=== PATIENT | male | born 1950 | race Caucasian/White ===

== ENCOUNTER → 2017-08-18 | Outpatient (CLI) | payer MEDICARE, OTHER ==
--- NOTE | 2017-08-18 12:58 | Diagnostic Imaging Report ---
PROCEDURE:SMALL BOWEL SERIES COMPARISON:None. INDICATIONS:BILATERAL UPPER ABDOMEN PAIN TEQUNIQUE: A [employer] radiograph was performed. The patient was given barium to drink and sequential images of the abdomen were obtained through 3 hours until the contrast had reached the colon. Spot images of the small bowel and terminal ileum were obtained. Fluoro time: 1.3 minutes Fluoroscopic dose: 43.50 microGy FINDINGS: Unremarkable bowel gas pattern. No dilated bowel loops. Cholecystectomy clips are present. Small bowel: Normal motility and caliber No evidence of mass or mucosal abnormality. Also fold pattern appears normal. No evidence of effusion. Normal terminal ileum. CONCLUSION: Normal small bowel follow-through. Dictated by: Regi Sun M.D. on 08/18/2017 at 12:58 Electronically approved by: Regi Sun M.D. on 08/18/2017 at 12:58
== END ==
LOC: DX 06:59
PROVIDERS: ATTEND Internal Medicine Gastroenterology
DX: R10.11 Right upper quadrant pain (principal)
CPT/HCPCS: 74250

== ENCOUNTER → 2017-08-31 | Outpatient (CLI) | payer MEDICARE, OTHER ==
[~2017-08-31] MED LIST: GADOBENATE DIMEGLUMINE 1 ML IV ONE; LORAZEPAM INJ 2 MG/ML VIAL ONE
[2017-08-31 09:05] LABS: BLOOD UREA NITROGEN 9 mg/dL (7-26); BUN/CREATININE RATIO 8 (6-25); CREATININE, SERUM 1.17 mg/dL (0.72-1.25); EST GLOMERULAR FILTRATION RATE > 60 ML/MIN (60-)
--- NOTE | 2017-08-31 11:53 | Diagnostic Imaging Report ---
EXAM: MRI of the abdomen with and without contrast. INDICATION: Abdominal pain. COMPARISON: None. TECHNIQUE: Multiplanar and multisequence imaging was performed of the abdomen. T1 and T2-weighted images were obtained with and without contrast. T1-weighted in and [id number] , Dynamic, post gadolinium T1-weighted spoiled gradient echo scans. IV Contrast: 13 cc of MultiHance Oral Contrast: None. Medications: None DISCUSSION: Very limited study due to artifacts and motion. LOWER THORAX: Borderline cardiomegaly. HEPATOBILIARY: No focal hepatic lesions. Common bile duct distention up to 0.9 cm, likely due to postcholecystectomy reservoir effects. GALLBLADDER: Surgically absent. SPLEEN: No splenomegaly. PANCREAS: Atrophic. No focal masses or ductal dilatation. ADRENALS: No adrenal nodules KIDNEYS/URETERS: Kidneys enhance symmetrically. No hydronephrosis. Multiple right renal cysts, the largest in the inferior pole measuring 4.8 x 4.7 cm. The posterior midpole 1.2 cm T1 and T2 hyperintense lesion without definite signs of enhancement on subtraction postcontrast images, representing a hemorrhagic cyst (series 5, image 21). GI TRACT: Visualized bowel loops are grossly unremarkable. No evidence of bowel obstruction. Appendix is visualized on coronal images and appears unremarkable. LYMPH NODES: No lymphadenopathy. VESSELS: Moderate to severe atherosclerotic disease of abdominal aorta. PERITONEUM / RETROPERITONEUM: No free air or fluid. BONES: Unremarkable. Degenerative changes of lumbar spine. SOFT TISSUES: Unremarkable. IMPRESSION: 1. Very limited study. 2. No definite evidence of acute inflammatory process in the abdomen/pelvis. If clinical symptoms persist, consider obtaining CT with contrast for further evaluation. 3. Status post cholecystectomy with mild common bile duct dilatation, likely due to reservoir effects. 4. Multiple right renal cysts as described above. Signed by: Dr. Gray Burleson MD on 08/31/2017 11:49 AM
== END ==
LOC: MRI 08:11
PROVIDERS: ATTEND Internal Medicine Gastroenterology
DX: K22.70 Barrett's esophagus without dysplasia (principal)
CPT/HCPCS: 36415; 74183; 82565; 84520; J2060

== ENCOUNTER → 2018-01-23 | Day surgery (SDC) | payer MEDICARE, OTHER ==
[~2018-01-23] VITALS: Ht 170.2 cm; Wt 63.5 kg
[~2018-01-23] MED LIST changes: +BUPIVACAINE HCL 0.5% INJ 30 ML VIAL INJ ONE; +CEFAZOLIN SOD 1 GM/D5W 50ML 50 ML IV ONE; +CLINDAMYCIN PHOS 900MG/ 50ML 50 ML IV ONE; +DEXAMETHASONE SOD PHOS INJ 4 MG/ML VIAL ONE; +DIPHTH/TETANUS/ACEL. PERTUSSIS 0.5 ML SYR IM ONE; +EPHEDRINE SULFATE INJ 50 MG/10 ML SYR ONE; +FENTANYL CITRATE/PF 100MCG/2 ML INJ ONE; -GADOBENATE DIMEGLUMINE 1 ML IV ONE; +GLYCOPYRROLATE INJ 1MG/ 5 ML SYR ONE; +KETOROLAC TROMETHAMINE 30 MG/ML VIAL ONE; +LACTATED RINGER'S 1,000 ML IV SCH; +LIDOCAINE 1% 5ML-MPF INJ ONE; +LIDOCAINE 2%/ EPINEPHRINE 20ML MDV INJ ONE; +LIDOCAINE HCL 1% LOCAL INJ 20 ML VIAL INJ ONE; +LIDOCAINE HCL 2% LOCAL 20 ML VIAL INJ ONE; +LIDOCAINE HCL 2% LOCAL INJ 5 ML SDV VIAL INJ ONE; -LORAZEPAM INJ 2 MG/ML VIAL ONE; +MIDAZOLAM HCL 2 MG/2 ML VIAL ONE; +MUPIROCIN 2% OINT 22 GM TUBE ONE; +ONDANSETRON HCL INJ 2 MG/ML VIAL ONE; +PROPOFOL IV EMULSION 10 MG/ML 20 ML VIAL ONE; +SEVOFLURANE INHAL SOLN 250 ML PEN BTL ONE
--- NOTE | 2018-01-23 11:28 | Diagnostic Imaging Report ---
Exam: Right thumb 3 views History: Injury Comparison: None. Findings: Acute markedly comminuted fracture of the entirety of the first distal phalanx with extension to the interphalangeal joint. Overlying soft tissue lacerations. The proximal phalanx appears intact. Impression: Markedly comminuted fracture of the first distal phalanx with associated soft tissue laceration. Signed by: Dr. Keith Moralez M.D. on 01/23/2018 11:25 AM
--- NOTE | 2018-01-23 18:28 | Operative Report ---
DATE OF PROCEDURE: January 23, 2018 PREOPERATIVE DIAGNOSES 1. Table saw injury, right thumb. 2. Incomplete amputation, right thumb, distal phalanx. 3. Open fracture in distal phalanx. POSTOPERATIVE DIAGNOSES 1. Table saw injury, right thumb. 2. Incomplete amputation, right thumb, distal phalanx. 3. Open fracture in distal phalanx. PROCEDURES PERFORMED: 1. Debridement of distal phalanx, soft tissues. 2. Repair of saw injury, right thumb, incomplete amputation. ANESTHESIA: General. HISTORY: The patient is a 67-year-old right hand dominant male who sustained a table saw injury to the right thumb last evening. He did not come to the emergency room until today around noon. He was seen urgently and evaluation was performed. It was noted that the tissues were vascularized, but dusky, and he is now being taken to the OR urgently for repair of incomplete amputation/table saw injury of right thumb. Risks, benefits and alternatives of treatment were discussed with the patient. He is prepared to undergo the procedure as outlined. DETAILS OF PROCEDURE: Patient was marked preoperatively in the holding area. He was brought to the operating theater and after the induction of adequate general anesthesia he was prepped and draped in a supine position. A time out was performed. The right upper extremity was exsanguinated and tourniquet was inflated to a pressure of 250 mmHg. The procedure was begun by sharply debriding all the devitalized soft tissues on the volar aspect of the distal phalanx from the IP flexion crease all the way to the distal tip. At this point, copious irrigation was done to remove all particulate wood and bony fragments. Once this was performed, the C-arm fluoroscope was brought in and the major fracture fragments are aligned as best possible and transfixed with 0.28 K wires transversely. At this point, the soft tissues were then repaired using 5-0 nylon in interrupted fashion. Once the volar soft tissues had been repaired, attention was turned to the nail bed. The nail plate was completely transected sagittally in its midline. The nail plate was removed and the nail bed was then gently debrided of all devitalized tissue. A 5-0 chromic was then used in interrupted fashion to approximate the nail bed as well as the germinal matrix underneath the eponychial fold. An INRO nail stent was then fabricated and secured to the eponychial fold in the distal tip of the thumb using 5-0 nylon suture. The tourniquet was deflated. The thumb pinked up and the wound was noted to be hemostatic. Bactroban ointment, Xeroform gauze was then placed on the thumb. Sterile dressings were applied and then a foam aluminum splint was added for external protection and held in place with Coban. The patient tolerated the procedure well. Estimated blood loss during the procedure was negligible. A 0.5% plain Marcaine field block was performed at the base of the right thumb for postoperative analgesia. Approximately 6 mL was used. Patient was returned to recovery room in satisfactory condition and discharged with a postoperative instruction sheet as well as a followup appointment. Job#: [id number] GUILLERMINA
[2018-01-23 18:45] VITALS: BP 147/62
== END | disposition home or self-care (01) ==
LOC: ER 09:41 → UNDOADMOB 15:08 → ERHOLD 15:08 → OR 15:59
PROVIDERS: ATTEND Plastic Surgery
DX: S68.021A Partial traumatic metacarpophalangeal amputation of right thumb, initial encounter (principal); S62.630A Displaced fracture of distal phalanx of right index finger, initial encounter for closed fracture; I25.2 Old myocardial infarction; E03.9 Hypothyroidism, unspecified; F17.210 Nicotine dependence, cigarettes, uncomplicated; W31.2XXA Contact with powered woodworking and forming machines, initial encounter; Y92.009 Unspecified place in unspecified non-institutional (private) residence as the place of occurrence of the external cause; Z95.1 Presence of aortocoronary bypass graft
CPT/HCPCS: 11730; 26765; 73140; 99284; J1100; J1885; J2001 ×2; J2250; J2405; J3490; J7120

== ENCOUNTER 2021-12-06 12:19 | Emergency (ER) | payer MEDICARE, OTHER ==
[~2021-12-06] VITALS: Ht 170.2 cm; Wt 63.5 kg
[2021-12-06 13:37] LABS: BASOPHILS % 0.2 % (0.0-1.0); EOSINOPHILS # (AUTO) 0.2 (0.0-0.4); EOSINOPHILS % 1.3 % (0.0-6.0); HEMOGLOBIN 13.6 g/dL (14.0-18.0); LYMPHOCYTES # (AUTO) 1.2 (1.0-3.2); LYMPHOCYTES % 10.8 % (18.0-39.1); MEAN CORPUSCULAR HEMOGLOBIN 31.3 pg (28-32); MEAN CORPUSCULAR HGB CONC 33.2 g/dL (31-35); MEAN CORPUSCULAR VOLUME 94.5 fL (81-99); MONOCYTES % 8.5 % (4.4-11.3); NEUTROPHILS # (AUTO) 8.8 (2.1-6.9); NEUTROPHILS % 78.6 % (38.7-80.0); PLATELET COUNT 356 x10e3/uL (140-360); RED BLOOD COUNT 4.34 x10e6/uL (4.3-5.7); RED CELL DISTRIBUTION WIDTH 12.4 % (11.7-14.4)
[2021-12-06 13:44] LABS: INR 0.98; PROTHROMBIN TIME 13.9 seconds (11.9-14.5)
[2021-12-06 13:50] LABS: ALBUMIN 2.9 g/dL (3.5-5.0); ALBUMIN/GLOBULIN RATIO 0.8 (0.8-2.0); ANION GAP 13.2 mmol/L (8-16); CALCIUM 8.6 mg/dL (8.4-10.2); CREATININE, SERUM 1.16 mg/dL (0.72-1.25); POTASSIUM 4.2 mmol/L (3.5-5.1)
[2021-12-06 13:57] LABS: CREATINE KINASE MB 2.1 ng/mL (0-5.0)
[2021-12-06] MEDS ORDERED: DEXAMETHASONE SOD PHOS 10 MG/1 ML VIAL IV ONE (15:00)
[2021-12-06] MEDS ORDERED: SODIUM CHLORIDE 0.9% 500ML 500 ML IV ONE (15:00)
[2021-12-06] MEDS ORDERED: ALBUTEROL/IPRATROPIUM 3 ML NEB NEB ONE (15:00)
[2021-12-06] MEDS ORDERED: IOPAMIDOL 370 MG/ML 100 ML INFUS..BTL INJ ONE (16:22)
== END 2021-12-06 18:08 | disposition home or self-care (01) ==
LOC: ER 12:24
DX: R06.02 Shortness of breath (principal); J44.1 Chronic obstructive pulmonary disease with (acute) exacerbation; J40 Bronchitis, not specified as acute or chronic; R05.9 Cough, unspecified; I10 Essential (primary) hypertension; E78.5 Hyperlipidemia, unspecified; F41.9 Anxiety disorder, unspecified; Z87.01 Personal history of pneumonia (recurrent); Z95.1 Presence of aortocoronary bypass graft; F17.210 Nicotine dependence, cigarettes, uncomplicated
CPT/HCPCS: 0223U; 36415; 71045; 71260; 80053; 82550; 82553; 83605; 83880; 84484; 85025; 85379; 85610; 85730; 87040; 93005; 94640; 94799; 99284; J1100; J7040; Q9967

== ENCOUNTER 2022-08-24 16:44 | Inpatient (IN) | payer MEDICARE ==
[~2022-08-24] VITALS: Ht 170.2 cm; Wt 63.5 kg
[2022-08-24] MEDS ORDERED: ACETAMINOPHEN 325 MG TAB PO ONE (17:15)
[2022-08-24] MEDS ORDERED: ALBUTEROL/IPRATROPIUM 3 ML NEB NEB ONE (17:15)
[2022-08-24] MEDS ORDERED: PREDNISONE 20 MG TAB PO ONE (17:15)
[2022-08-24 17:22] LABS: BASOPHILS % 0.3 % (0.0-1.0); EOSINOPHILS # (AUTO) 0.1 (0.0-0.4); EOSINOPHILS % 1.2 % (0.0-6.0); HEMATOCRIT 35.9 % (38.2-49.6); HEMOGLOBIN 12.3 g/dL (14.0-18.0); LYMPHOCYTES % 10.9 % (18.0-39.1); MEAN CORPUSCULAR HEMOGLOBIN 32.8 pg (28-32); MEAN CORPUSCULAR HGB CONC 34.3 g/dL (31-35); MEAN CORPUSCULAR VOLUME 95.7 fL (81-99); MONOCYTES # (AUTO) 1.2 (0.2-0.8); MONOCYTES % 12.6 % (4.4-11.3); NEUTROPHILS # (AUTO) 6.9 (2.1-6.9); NEUTROPHILS % 74.5 % (38.7-80.0); PLATELET COUNT 211 x10e3/uL (140-360); RED BLOOD COUNT 3.75 x10e6/uL (4.3-5.7); RED CELL DISTRIBUTION WIDTH 12.2 % (11.7-14.4)
[2022-08-24 17:35] LABS: ALBUMIN 3.3 g/dL (3.5-5.0); ALBUMIN/GLOBULIN RATIO 0.9 (0.8-2.0); ANION GAP 15.2 mmol/L (8-16); CALCIUM 9.1 mg/dL (8.4-10.2); CREATININE, SERUM 1.48 mg/dL (0.72-1.25); POTASSIUM 4.2 mmol/L (3.5-5.1)
[2022-08-24 17:45] LABS: MAGNESIUM 1.8 MG/DL (1.3-2.1)
[2022-08-24] MEDS ORDERED: ACETAMINOPHEN/CODEINE 300MG - 30MG TAB PO ONE (18:00)
[2022-08-24] MEDS ORDERED: SODIUM CHLORIDE 0.9% 1000ML 1,000 ML IV SCH ×2 (18:00→20:00)
[2022-08-24] MEDS ORDERED: IOPAMIDOL 370 MG/ML 100 ML INFUS..BTL INJ ONE (18:20)
[2022-08-24] MEDS ORDERED: ASPIRIN 81 MG CHEW TAB PO ONE (20:00)
[2022-08-24 20:24] LABS: CREATINE KINASE MB 6.6 ng/mL (0-5.0)
[2022-08-24] MEDS ORDERED: ACETAMINOPHEN 325 MG TAB PO PRN (20:30)
[2022-08-24] MEDS ORDERED: AZITHROMYCIN 250 MG TAB PO SCH (21:00)
[2022-08-24] MEDS ORDERED: GUAIFENESIN 200 MG/10 ML UDC PO PRN (22:45)
[2022-08-24] MEDS ORDERED: MELATONIN 5 MG TABLET PO SCH (22:45)
[2022-08-24] MEDS ORDERED: BENZONATATE 100 MG CAP PO PRN (22:45)
[2022-08-24] MEDS ORDERED: ALBUTEROL/IPRATROPIUM 3 ML NEB NEB SCH (23:00)
[2022-08-24] MEDS: IPRATROPIUM BROMIDE 0.02% 2.5 ML NEB NEB SCH (23:15)
[2022-08-24] MEDS: ALBUTEROL SULF 0.083% NEB SOLN 3 ML NEB NEB SCH (23:15)
[2022-08-24 23:20] VITALS: BP 98/65
[2022-08-24 23:47] VITALS: BP 98/65
[2022-08-24 23:48] VITALS: BP 98/65
[2022-08-25] MEDS ORDERED: SPIRONOLACTONE25 MG PO (00:54)
[2022-08-25] MEDS ORDERED: TRAZODONE HCL100 MG PO (00:54)
[2022-08-25] MEDS ORDERED: ATORVASTATIN CA20 MG PO (00:54)
[2022-08-25] MEDS ORDERED: FENTANYL1 EAC2 (00:54)
[2022-08-25] MEDS ORDERED: CYMBALTA30 MG (00:54)
[2022-08-25] MEDS ORDERED: METOPROLOL SUCC25 MG PO (00:54)
[2022-08-25] MEDS ORDERED: PLAVIX75 MG PO (00:54)
[2022-08-25] MEDS ORDERED: XANAX1 MG PO (00:54)
[2022-08-25] MEDS ORDERED: LEVOTHYROXINE112 MCG PO (00:54)
[2022-08-25] MEDS ORDERED: ENTRESTO 24 MG1 EACH PO (00:54)
[2022-08-25] MEDS ORDERED: ROPINIROLE HC0.25 MG PO (00:54)
[2022-08-25 04:00] VITALS: BP 103/67
[2022-08-25 05:47] LABS: BASOPHILS % 0.4 % (0.0-1.0); HEMATOCRIT 32.1 % (38.2-49.6); HEMOGLOBIN 10.8 g/dL (14.0-18.0); LYMPHOCYTES # (AUTO) 0.7 (1.0-3.2); LYMPHOCYTES % 9.2 % (18.0-39.1); MEAN CORPUSCULAR HEMOGLOBIN 32.6 pg (28-32); MEAN CORPUSCULAR HGB CONC 33.6 g/dL (31-35); MONOCYTES # (AUTO) 0.6 (0.2-0.8); MONOCYTES % 7.8 % (4.4-11.3); NEUTROPHILS # (AUTO) 6.6 (2.1-6.9); NEUTROPHILS % 81.4 % (38.7-80.0); PLATELET COUNT 197 x10e3/uL (140-360); RED BLOOD COUNT 3.31 x10e6/uL (4.3-5.7); RED CELL DISTRIBUTION WIDTH 11.9 % (11.7-14.4)
[2022-08-25 06:07] LABS: ALBUMIN 2.6 g/dL (3.5-5.0); ALBUMIN/GLOBULIN RATIO 0.8 (0.8-2.0); ANION GAP 11.4 mmol/L (8-16); CALCIUM 8.2 mg/dL (8.4-10.2); CREATININE, SERUM 1.17 mg/dL (0.72-1.25); POTASSIUM 4.4 mmol/L (3.5-5.1)
[2022-08-25 06:28] LABS: CREATINE KINASE MB 6.2 ng/mL (0-5.0)
[2022-08-25] MEDS: ALBUTEROL SULF 0.083% NEB SOLN 3 ML NEB NEB SCH ×2 (07:43→12:46)
[2022-08-25] MEDS: IPRATROPIUM BROMIDE 0.02% 2.5 ML NEB NEB SCH ×2 (07:43→12:46)
[2022-08-25 08:36] VITALS: BP 100/56
[2022-08-25] MEDS ORDERED: PREDNISONE 20 MG TAB PO SCH (09:00)
[2022-08-25] MEDS ORDERED: AZITHROMYCIN250 MG PO (11:45)
[2022-08-25] MEDS ORDERED: PREDNISONE20 MG PO (11:45)
[2022-08-25] MEDS ORDERED: SYMBICORT 16010.2 GM INH (11:45)
[2022-08-25 11:51] VITALS: BP 80/64
== END 2022-08-25 13:28 | disposition home or self-care (01) | DRG 191 ==
LOC: ER 16:48 → ERHOLD 20:00 → MED/SURG 22:54
PROVIDERS: ADMIT Internal Medicine; ATTEND Internal Medicine
DX: J44.1 Chronic obstructive pulmonary disease with (acute) exacerbation (principal); N17.9 Acute kidney failure, unspecified; I11.0 Hypertensive heart disease with heart failure; I50.9 Heart failure, unspecified; I48.91 Unspecified atrial fibrillation; F32.9 Major depressive disorder, single episode, unspecified; D64.9 Anemia, unspecified; E78.5 Hyperlipidemia, unspecified; F41.9 Anxiety disorder, unspecified; I25.10 Atherosclerotic heart disease of native coronary artery without angina pectoris; E86.0 Dehydration; Z79.02 Long term (current) use of antithrombotics/antiplatelets; I25.2 Old myocardial infarction; Z95.1 Presence of aortocoronary bypass graft; Z90.49 Acquired absence of other specified parts of digestive tract; Z20.822 Contact with and (suspected) exposure to COVID-19; Z87.891 Personal history of nicotine dependence; Z79.51 Long term (current) use of inhaled steroids
CPT/HCPCS: 36415; 71045; 71260; 80053; 82550; 82553; 83735; 83880; 84484; 85025; 93005; 94640; 94799; 99284; J7030; J7512; Q9967

== ENCOUNTER 2022-08-28 20:26 | Inpatient (IN) | payer MEDICARE ==
[~2022-08-28] VITALS: Ht 167.6 cm; Wt 63.5 kg
[~2022-08-28 20:26] MED LIST changes: +ATORVASTATIN CA20 MG PO; +AZITHROMYCIN250 MG PO; -BUPIVACAINE HCL 0.5% INJ 30 ML VIAL INJ ONE; -CEFAZOLIN SOD 1 GM/D5W 50ML 50 ML IV ONE; -CLINDAMYCIN PHOS 900MG/ 50ML 50 ML IV ONE; +CYMBALTA30 MG; -DEXAMETHASONE SOD PHOS INJ 4 MG/ML VIAL ONE; -DIPHTH/TETANUS/ACEL. PERTUSSIS 0.5 ML SYR IM ONE; +ENTRESTO 24 MG1 EACH PO; -EPHEDRINE SULFATE INJ 50 MG/10 ML SYR ONE; -FENTANYL CITRATE/PF 100MCG/2 ML INJ ONE; +FENTANYL1 EAC2; -GLYCOPYRROLATE INJ 1MG/ 5 ML SYR ONE; -KETOROLAC TROMETHAMINE 30 MG/ML VIAL ONE; -LACTATED RINGER'S 1,000 ML IV SCH; +LEVOTHYROXINE112 MCG PO; -LIDOCAINE 1% 5ML-MPF INJ ONE; -LIDOCAINE 2%/ EPINEPHRINE 20ML MDV INJ ONE; -LIDOCAINE HCL 1% LOCAL INJ 20 ML VIAL INJ ONE; -LIDOCAINE HCL 2% LOCAL 20 ML VIAL INJ ONE; -LIDOCAINE HCL 2% LOCAL INJ 5 ML SDV VIAL INJ ONE; +METOPROLOL SUCC25 MG PO; -MIDAZOLAM HCL 2 MG/2 ML VIAL ONE; -MUPIROCIN 2% OINT 22 GM TUBE ONE; -ONDANSETRON HCL INJ 2 MG/ML VIAL ONE; +PLAVIX75 MG PO; +PREDNISONE20 MG PO; -PROPOFOL IV EMULSION 10 MG/ML 20 ML VIAL ONE; +ROPINIROLE HC0.25 MG PO; -SEVOFLURANE INHAL SOLN 250 ML PEN BTL ONE; +SPIRONOLACTONE25 MG PO; +SYMBICORT 16010.2 GM INH; +TRAZODONE HCL100 MG PO; +XANAX1 MG PO
[2022-08-28] MEDS ORDERED: ALBUTEROL SULF 0.083% NEB SOLN 3 ML NEB NEB STA (20:37)
[2022-08-28] MEDS ORDERED: ACETAMINOPHEN 325 MG TAB PO ONE (20:45)
[2022-08-28] MEDS ORDERED: IPRATROPIUM BROMIDE 0.02% 2.5 ML NEB NEB ONE (20:45)
[2022-08-28] MEDS ORDERED: METHYLPREDNISOLONE SOD SUCC 125 MG/2ML VIAL IV ONE (20:45)
[2022-08-28 20:53] LABS: BASOPHILS # (AUTO) 0.1 (0.0-0.1); BASOPHILS % 0.3 % (0.0-1.0); EOSINOPHILS # (AUTO) 0.1 (0.0-0.4); EOSINOPHILS % 0.3 % (0.0-6.0); HEMATOCRIT 37.4 % (38.2-49.6); HEMOGLOBIN 12.5 g/dL (14.0-18.0); LYMPHOCYTES # (AUTO) 1.6 (1.0-3.2); LYMPHOCYTES % 8.5 % (18.0-39.1); MEAN CORPUSCULAR HEMOGLOBIN 32.5 pg (28-32); MEAN CORPUSCULAR HGB CONC 33.4 g/dL (31-35); MEAN CORPUSCULAR VOLUME 97.1 fL (81-99); MONOCYTES % 5.5 % (4.4-11.3); NEUTROPHILS # (AUTO) 15.6 (2.1-6.9); NEUTROPHILS % 82.8 % (38.7-80.0); PLATELET COUNT 287 x10e3/uL (140-360); RED BLOOD COUNT 3.85 x10e6/uL (4.3-5.7); RED CELL DISTRIBUTION WIDTH 12.7 % (11.7-14.4)
[2022-08-28 21:05] VITALS: PULSE 96; RESP 22; O2SAT 98
[2022-08-28 21:09] LABS: ALBUMIN 3.1 g/dL (3.5-5.0); ALBUMIN/GLOBULIN RATIO 0.7 (0.8-2.0); ANION GAP 16.4 mmol/L (8-16); CREATININE, SERUM 1.3 mg/dL (0.72-1.25); POTASSIUM 4.4 mmol/L (3.5-5.1)
[2022-08-28 21:14] LABS: CALCIUM 9.6 mg/dL (8.4-10.2)
[2022-08-28 21:16] LABS: CREATINE KINASE MB 5.6 ng/mL (0-5.0)
[2022-08-28] MEDS ORDERED: Vancomycin IV 1 GM in SODIUM CHLORIDE 0.9% 250ML 250 ML IV SCH ×2 (21:30→22:00)
[2022-08-28] MEDS ORDERED: SODIUM CHLORIDE FLUSH 10 ML SYR INJ PRN (22:15)
[2022-08-28] MEDS: IPRATROPIUM BROMIDE 0.02% 2.5 ML NEB NEB SCH (22:28)
[2022-08-28 23:08] VITALS: BP 100/63; PULSE 80; RESP 18; TEMP 97.6; O2SAT 96
[2022-08-28 23:10] VITALS: BP 100/63; PULSE 80; RESP 18; TEMP 97.6; O2SAT 100
[2022-08-28 23:22] VITALS: BP 100/63; PULSE 80; RESP 18; TEMP 97.6; O2SAT 100
[2022-08-28] MEDS ORDERED: SODIUM CHLORIDE 0.9% 250ML 250 ML ONE (23:31)
[2022-08-29] VITALS (16 sets, daily range): BP systolic 90–149; BP diastolic 42–63; PULSE 52–96; RESP 16–22; TEMP 97.1–98.1; O2SAT 96–100
[2022-08-29] MEDS ORDERED: ACETAMINOPHEN 325 MG TAB PO PRN (01:00)
[2022-08-29] MEDS: IPRATROPIUM BROMIDE 0.02% 2.5 ML NEB NEB SCH ×5 (02:10→22:28)
[2022-08-29] MEDS: ALBUTEROL SULF 0.083% NEB SOLN 3 ML NEB NEB SCH ×7 (02:12→22:28)
[2022-08-29 05:45] LABS: BASOPHILS # (AUTO) 0.1 (0.0-0.1); BASOPHILS % 0.3 % (0.0-1.0); HEMATOCRIT 33.6 % (38.2-49.6); LYMPHOCYTES # (AUTO) 0.6 (1.0-3.2); LYMPHOCYTES % 3.3 % (18.0-39.1); MEAN CORPUSCULAR HEMOGLOBIN 32.2 pg (28-32); MEAN CORPUSCULAR HGB CONC 32.7 g/dL (31-35); MEAN CORPUSCULAR VOLUME 98.2 fL (81-99); MONOCYTES # (AUTO) 0.2 (0.2-0.8); MONOCYTES % 1.2 % (4.4-11.3); NEUTROPHILS # (AUTO) 16.5 (2.1-6.9); NEUTROPHILS % 93.4 % (38.7-80.0); PLATELET COUNT 265 x10e3/uL (140-360); RED BLOOD COUNT 3.42 x10e6/uL (4.3-5.7); RED CELL DISTRIBUTION WIDTH 12.5 % (11.7-14.4)
[2022-08-29 06:11] LABS: ALBUMIN 2.5 g/dL (3.5-5.0); ALBUMIN/GLOBULIN RATIO 0.7 (0.8-2.0); ANION GAP 13.5 mmol/L (8-16); CALCIUM 8.5 mg/dL (8.4-10.2); CREATININE, SERUM 1.1 mg/dL (0.72-1.25); POTASSIUM 4.5 mmol/L (3.5-5.1)
[2022-08-29 06:14] LABS: CREATINE KINASE MB 4.1 ng/mL (0-5.0)
[2022-08-29] MEDS ORDERED: ALPRAZOLAM 1 MG TAB PO PRN (13:15)
[2022-08-29] MEDS ORDERED: FUROSEMIDE INJ 10 MG/ML 2 ML VIAL IV ONE ×2 (14:30→15:30)
[2022-08-29 16:49] LABS: CREATINE KINASE MB 7.4 ng/mL (0-5.0)
[2022-08-29] MEDS ORDERED: BUDESONIDE/FORMOTEROL 160/4.5MCG INHALER INH SCH (17:00)
[2022-08-29] MEDS: BUDESONIDE/FORMOTEROL 160/4.5MCG INHALER INH SCH (19:50)
[2022-08-29] MEDS: ATORVASTATIN 40 MG TAB PO SCH (20:20)
[2022-08-29] MEDS ORDERED: TRAZODONE HCL 50 MG TAB PO SCH (21:00)
[2022-08-30] VITALS (12 sets, daily range): BP systolic 93–134; BP diastolic 62–99; PULSE 63–99; RESP 16–24; TEMP 97.4–98.3; O2SAT 94–99
[2022-08-30] MEDS: ALBUTEROL SULF 0.083% NEB SOLN 3 ML NEB NEB SCH ×5 (02:20→21:00)
[2022-08-30] MEDS: LEVOTHYROXINE SODIUM 112 MCG TAB PO SCH (05:57)
[2022-08-30] MEDS: IPRATROPIUM BROMIDE 0.02% 2.5 ML NEB NEB SCH ×3 (07:00→19:30)
[2022-08-30] MEDS: BUDESONIDE/FORMOTEROL 160/4.5MCG INHALER INH SCH ×2 (07:59→19:36)
[2022-08-30] MEDS: SPIRONOLACTONE 25 MG TAB PO SCH (08:00)
[2022-08-30] MEDS: DULOXETINE HCL 30 MG DELAYED RELEASE PO SCH (08:02)
[2022-08-30] MEDS: METOPROLOL SUCCINATE 25 MG TAB XL PO SCH (08:06)
[2022-08-30] MEDS ORDERED: GUAIFENESIN/CODEINE 5 ML LIQD PO PRN (09:00)
[2022-08-30] MEDS: METHYLPREDNISOLONE SOD SUCC 40 MG/ML VIAL 1ML IV SCH ×2 (10:09→21:23)
[2022-08-30] MEDS: ROPINIROLE HCL 0.25 MG TAB PO SCH (10:11)
[2022-08-30] MEDS ORDERED: REPATHA SU140 MG/1 M SQ (10:14)
[2022-08-30 14:58] LABS: BASOPHILS % 0.2 % (0.0-1.0); HEMOGLOBIN 11.3 g/dL (14.0-18.0); LYMPHOCYTES # (AUTO) 0.6 (1.0-3.2); LYMPHOCYTES % 2.7 % (18.0-39.1); MEAN CORPUSCULAR HEMOGLOBIN 32.1 pg (28-32); MEAN CORPUSCULAR HGB CONC 33.2 g/dL (31-35); MEAN CORPUSCULAR VOLUME 96.6 fL (81-99); MONOCYTES # (AUTO) 0.4 (0.2-0.8); MONOCYTES % 2.1 % (4.4-11.3); NEUTROPHILS # (AUTO) 19.2 (2.1-6.9); NEUTROPHILS % 93.8 % (38.7-80.0); PLATELET COUNT 280 x10e3/uL (140-360); RED BLOOD COUNT 3.52 x10e6/uL (4.3-5.7); RED CELL DISTRIBUTION WIDTH 12.5 % (11.7-14.4)
[2022-08-30 15:30] LABS: NEUTROPHILS % (MANUAL) 100 % (40-74)
[2022-08-30 15:31] LABS: PLATELET ESTIMATE ADEQUATE; PLATELET MORPHOLOGY COMMENT NORMAL; RBC MORPHOLOGY COMMENT NORMAL
[2022-08-30] MEDS ORDERED: BENZONATATE 100 MG CAP PO PRN ×2 (17:30→19:30)
[2022-08-30] MEDS ORDERED: TRAZODONE HCL 50 MG TAB PO SCH (21:00)
[2022-08-30] MEDS: ATORVASTATIN 40 MG TAB PO SCH (21:23)
[2022-08-31] VITALS (7 sets, daily range): BP systolic 118–145; BP diastolic 60–67; PULSE 50–74; RESP 16–20; TEMP 97.2–98.2; O2SAT 94–100
[2022-08-31] MEDS: LEVOTHYROXINE SODIUM 112 MCG TAB PO SCH (06:13)
[2022-08-31] MEDS: IPRATROPIUM BROMIDE 0.02% 2.5 ML NEB NEB SCH ×3 (06:30→14:00)
[2022-08-31] MEDS: ALBUTEROL SULF 0.083% NEB SOLN 3 ML NEB NEB SCH ×3 (06:30→14:00)
[2022-08-31 06:49] LABS: BASOPHILS % 0.1 % (0.0-1.0); HEMATOCRIT 33.6 % (38.2-49.6); HEMOGLOBIN 11.1 g/dL (14.0-18.0); LYMPHOCYTES # (AUTO) 0.7 (1.0-3.2); LYMPHOCYTES % 4.2 % (18.0-39.1); MEAN CORPUSCULAR HEMOGLOBIN 31.9 pg (28-32); MEAN CORPUSCULAR VOLUME 96.6 fL (81-99); MONOCYTES # (AUTO) 0.4 (0.2-0.8); NEUTROPHILS % 92.3 % (38.7-80.0); PLATELET COUNT 296 x10e3/uL (140-360); RED BLOOD COUNT 3.48 x10e6/uL (4.3-5.7); RED CELL DISTRIBUTION WIDTH 12.3 % (11.7-14.4)
[2022-08-31] MEDS: BUDESONIDE/FORMOTEROL 160/4.5MCG INHALER INH SCH (06:57)
[2022-08-31 07:25] LABS: ALBUMIN 2.5 g/dL (3.5-5.0); ALBUMIN/GLOBULIN RATIO 0.7 (0.8-2.0); ANION GAP 12.5 mmol/L (8-16); CALCIUM 8.9 mg/dL (8.4-10.2); CREATININE, SERUM 1.08 mg/dL (0.72-1.25); POTASSIUM 4.5 mmol/L (3.5-5.1)
[2022-08-31] MEDS: SPIRONOLACTONE 25 MG TAB PO SCH (08:37)
[2022-08-31] MEDS: METHYLPREDNISOLONE SOD SUCC 40 MG/ML VIAL 1ML IV SCH (08:37)
[2022-08-31] MEDS: DULOXETINE HCL 30 MG DELAYED RELEASE PO SCH (08:37)
[2022-08-31] MEDS: ROPINIROLE HCL 0.25 MG TAB PO SCH (08:37)
[2022-08-31] MEDS: METOPROLOL SUCCINATE 25 MG TAB XL PO SCH (08:38)
[2022-08-31] MEDS ORDERED: AZITHROMYCIN 250 MG TAB PO SCH (16:00)
== END 2022-08-31 15:15 | disposition home or self-care (01) | DRG 190 ==
LOC: ER 20:33 → ERHOLD 22:17 → MED/SURG 22:57 → UNDODISIN 08-29 14:01
PROVIDERS: ADMIT Internal Medicine; ATTEND Internal Medicine
DX: J43.9 Emphysema, unspecified (principal); I50.33 Acute on chronic diastolic (congestive) heart failure; J18.9 Pneumonia, unspecified organism; J96.90 Respiratory failure, unspecified, unspecified whether with hypoxia or hypercapnia; I13.0 Hypertensive heart and chronic kidney disease with heart failure and stage 1 through stage 4 chronic kidney disease, or unspecified chronic kidney disease; F41.9 Anxiety disorder, unspecified; E03.9 Hypothyroidism, unspecified; I25.2 Old myocardial infarction; F32.A Depression, unspecified; I71.9 Aortic aneurysm of unspecified site, without rupture; R00.0 Tachycardia, unspecified; J22 Unspecified acute lower respiratory infection; D63.1 Anemia in chronic kidney disease; N18.2 Chronic kidney disease, stage 2 (mild); I48.0 Paroxysmal atrial fibrillation; E78.5 Hyperlipidemia, unspecified; I25.10 Atherosclerotic heart disease of native coronary artery without angina pectoris; Z90.49 Acquired absence of other specified parts of digestive tract; Z95.1 Presence of aortocoronary bypass graft; Z87.891 Personal history of nicotine dependence
CPT/HCPCS: 36415; 71045; 80053; 82550; 82553; 83605; 83880; 84484; 85025; 87040; 93005; 93306; 94640; 94799; 99284; J0692; J0696; J1940; J2920; J2930; J7050

== ENCOUNTER → 2024-02-17 | Outpatient (REF) | payer MEDICARE ==
[~2024-02-17] MED LIST changes: +IOPAMIDOL 370 MG/ML 100 ML INFUS..BTL INJ ONE; +REPATHA SU140 MG/1 M SQ; +SODIUM CHLORIDE 0.9% 100 ML ONE
[2024-02-17 14:40] LABS: CREATININE, SERUM 1.33 mg/dL (0.72-1.25)
== END ==
LOC: CT 14:04
PROVIDERS: ATTEND Internal Medicine Cardiovascular Disease
DX: I65.23 Occlusion and stenosis of bilateral carotid arteries (principal)
CPT/HCPCS: 36415; 70496; 70498; 82565; 84520; J7050; Q9967

== ENCOUNTER → 2025-01-01 | Day surgery (SDC) | payer MEDICARE ==
[2024-12-28 10:16] LABS: BASOPHILS % 0.5 % (0.0-1.0); EOSINOPHILS % 0.8 % (0.0-6.0); LYMPHOCYTES % 15.9 % (18.0-39.1); MONOCYTES % 8.5 % (4.4-11.3); NEUTROPHILS % 73.8 % (38.7-80.0); RED CELL DISTRIBUTION WIDTH 13.2 % (11.7-14.4)
[~2025-01-01] MED LIST changes: -IOPAMIDOL 370 MG/ML 100 ML INFUS..BTL INJ ONE; +JARDIANCE10 MG PO; +LOSARTAN POTASS25 MG PO; +ONDANSETRON HCL INJ 2MG/ML 2ML 2 MG/ML VIAL ONE; +PROPOFOL IV EMULSION 10 MG/ML 20 ML VIAL ONE; -SODIUM CHLORIDE 0.9% 100 ML ONE
[2025-01-01] MEDS: LACTATED RINGER'S 1,000 ML ONE (10:39)
[2025-01-01 12:15] VITALS: TEMP 98.5
[2025-01-01 12:40] VITALS: BP 153/76; PULSE 56; RESP 18; O2SAT 100
== END | disposition home or self-care (01) ==
LOC: OR 09:29
PROVIDERS: ATTEND Internal Medicine Gastroenterology
DX: K21.00 Gastro-esophageal reflux disease with esophagitis, without bleeding (principal); K29.50 Unspecified chronic gastritis without bleeding; K44.9 Diaphragmatic hernia without obstruction or gangrene; K92.0 Hematemesis; Z87.11 Personal history of peptic ulcer disease; K59.00 Constipation, unspecified; D64.9 Anemia, unspecified; I10 Essential (primary) hypertension; G25.81 Restless legs syndrome; I25.810 Atherosclerosis of coronary artery bypass graft(s) without angina pectoris; K55.1 Chronic vascular disorders of intestine; K83.8 Other specified diseases of biliary tract; R93.5 Abnormal findings on diagnostic imaging of other abdominal regions, including retroperitoneum; I25.2 Old myocardial infarction; E78.5 Hyperlipidemia, unspecified; E11.9 Type 2 diabetes mellitus without complications; E03.9 Hypothyroidism, unspecified; M54.2 Cervicalgia; M54.9 Dorsalgia, unspecified; M06.9 Rheumatoid arthritis, unspecified; M19.90 Unspecified osteoarthritis, unspecified site; F41.9 Anxiety disorder, unspecified; F32.A Depression, unspecified; Z88.6 Allergy status to analgesic agent; Z01.810 Encounter for preprocedural cardiovascular examination; Z01.812 Encounter for preprocedural laboratory examination; Z79.02 Long term (current) use of antithrombotics/antiplatelets; Z79.82 Long term (current) use of aspirin; Z79.84 Long term (current) use of oral hypoglycemic drugs; Z79.1 Long term (current) use of non-steroidal anti-inflammatories (NSAID); Z79.899 Other long term (current) drug therapy; Z95.1 Presence of aortocoronary bypass graft; Z95.5 Presence of coronary angioplasty implant and graft
CPT/HCPCS: 36415; 43239; 85025; 88305; 93005; J2405; J2704; J7121